=== PATIENT | male | born 1985 | race Caucasian/White ===

== ENCOUNTER 2017-07-31 13:37 | Inpatient (IN) | payer OTHER, MEDICAID ==
[2017-07-31] MEDS: NICOTINE 21MG/24HR 1 EA TRANSDERMAL TD (15:34)
[2017-07-31] MEDS: buPROPion **XL** TABLET 150MG (WELLBUTRIN XL) PO (15:34)
[2017-07-31] MEDS: CitaloPRAM (CeleXA) 20 MG TAB PO (15:34)
[2017-07-31] MEDS ORDERED: MAALOX 30 ML SUSP *UDC PO (17:00)
[2017-07-31] MEDS: BUPRENORPHINE/NALOXONE 2-0.5MG SUBLINGUAL TABLET(SUBOXONE) SL (20:11)
[2017-07-31] MEDS: ARIPiprazole 2 MG TAB PO (20:11)
[2017-07-31] MEDS: traZODone 50 MG TAB PO (21:10)
[2017-08-01] MEDS: diphenhydrAMINE 50 MG CAP PO ×2 (01:35→21:42)
[2017-08-01] MEDS: CitaloPRAM (CeleXA) 20 MG TAB PO (08:21)
[2017-08-01] MEDS: NICOTINE 21MG/24HR 1 EA TRANSDERMAL TD (08:21)
[2017-08-01] MEDS: BUPRENORPHINE/NALOXONE 2-0.5MG SUBLINGUAL TABLET(SUBOXONE) SL ×2 (08:21→20:40)
[2017-08-01] MEDS: buPROPion **XL** TABLET 150MG (WELLBUTRIN XL) PO (08:21)
[2017-08-01] MEDS ORDERED: diphenhydrAMINE 50 MG CAP PO (18:00)
[2017-08-01] MEDS: traZODone 100 MG TAB PO (21:41)
[2017-08-02] MEDS: NICOTINE 21MG/24HR 1 EA TRANSDERMAL TD (08:36)
[2017-08-02] MEDS: CitaloPRAM (CeleXA) 20 MG TAB PO (08:37)
[2017-08-02] MEDS: buPROPion **XL** TABLET 150MG (WELLBUTRIN XL) PO (08:37)
[2017-08-02] MEDS: BUPRENORPHINE/NALOXONE 2-0.5MG SUBLINGUAL TABLET(SUBOXONE) SL ×2 (09:34→20:09)
[2017-08-02] MEDS: traZODone 100 MG TAB PO (21:00)
[2017-08-02] MEDS: diphenhydrAMINE 50 MG CAP PO (21:00)
[2017-08-03] MEDS: BUPRENORPHINE/NALOXONE 2-0.5MG SUBLINGUAL TABLET(SUBOXONE) SL ×3 (06:00→17:15)
[2017-08-03] MEDS: NICOTINE 21MG/24HR 1 EA TRANSDERMAL TD (08:45)
[2017-08-03] MEDS: CitaloPRAM (CeleXA) 20 MG TAB PO (08:45)
[2017-08-03] MEDS: buPROPion **XL** TABLET 150MG (WELLBUTRIN XL) PO (08:45)
[2017-08-03] MEDS ORDERED: BUPRENORPHINE/NALOXONE 2-0.5MG SUBLINGUAL TABLET(SUBOXONE) SL (18:00)
[2017-08-03] MEDS: AVEENO TOP (20:58)
[2017-08-03] MEDS: diphenhydrAMINE 50 MG CAP PO (20:58)
[2017-08-03] MEDS: traZODone 100 MG TAB PO (20:58)
[2017-08-03] MEDS: COAL TAR 1% SHAMPOO 180 ML BTL TOP (20:58)
[2017-08-04] MEDS: NICOTINE 21MG/24HR 1 EA TRANSDERMAL TD (08:43)
[2017-08-04] MEDS: CitaloPRAM (CeleXA) 20 MG TAB PO (08:43)
[2017-08-04] MEDS: buPROPion **XL** TABLET 150MG (WELLBUTRIN XL) PO (08:43)
[2017-08-04] MEDS: AVEENO TOP (08:44)
[2017-08-04] MEDS: BUPRENORPHINE/NALOXONE 2-0.5MG SUBLINGUAL TABLET(SUBOXONE) SL ×2 (09:33→17:16)
[2017-08-04] MEDS ORDERED: cloNIDine 0.1 MG TAB PO (14:45)
[2017-08-04] MEDS ORDERED: AVEENO TOP (21:00)
[2017-08-04] MEDS: LACTIC ACID 12% LOTION 225 GM BTL TOP (21:07)
[2017-08-04] MEDS: COAL TAR 1% SHAMPOO 180 ML BTL TOP (21:08)
[2017-08-04] MEDS: diphenhydrAMINE 50 MG CAP PO (22:04)
[2017-08-04] MEDS: RAMELTEON 8 MG TAB (ROZEREM) PO (22:04)
[2017-08-04] MEDS: traZODone 100 MG TAB PO (22:05)
[2017-08-05] MEDS: NICOTINE 21MG/24HR 1 EA TRANSDERMAL TD (08:52)
[2017-08-05] MEDS: CitaloPRAM (CeleXA) 20 MG TAB PO (08:52)
[2017-08-05] MEDS: BUPRENORPHINE/NALOXONE 2-0.5MG SUBLINGUAL TABLET(SUBOXONE) SL ×2 (08:52→20:31)
[2017-08-05] MEDS: buPROPion **XL** TABLET 150MG (WELLBUTRIN XL) PO (08:52)
[2017-08-05 11:34] LABS: BASO # 0.1 10^3/uL (0.0-0.2); BASO % 0.6 % (0.0-1.0); EOS # 0.3 10^3/uL (0.0-0.50); EOS % 2.9 % (0.0-3.0); HEMATOCRIT 55.9 % (42.0-52.0); HEMOGLOBIN 15.4 g/dl (13.5-17.5); IMMATURE GRANULOCYTE % 0.5 % (0-3.0); LYMPH % 34.2 % (24.0-44.0); MEAN CORPUSCULAR HEMOGLOBIN 32.3 pg (27.0-33.0); MEAN CORPUSCULAR HGB CONC 27.5 g/dl (32.0-36.5); MONO # 0.8 10^3/uL (0.0-0.8); MONO % 9.2 % (0.0-5.0); NEUTROPHILS # 4.6 10^3/uL (1.8-7.7); NEUTROPHILS % 52.6 % (36.0-66.0); PLATELET COUNT, AUTOMATED 206 10^3/uL (150-450); RED BLOOD COUNT 4.77 10^6/uL (4.30-6.10); RED CELL DISTRIBUTION WIDTH 10.9 % (11.5-14.5); WHITE BLOOD COUNT 8.6 10^3/uL (4.0-10.0)
[2017-08-05 11:35] LABS: ADD MORPHOLOGY? YES; MEAN CORPUSCULAR VOLUME 117.2 fl (80.0-96.0); POSITIVE MORPH POS FLAG
[2017-08-05 11:55] LABS: PLATELET ESTIMATE NORMAL (NORMAL)
[2017-08-05 12:16] LABS: ALBUMIN 3.8 GM/DL (3.2-5.2); ALBUMIN/GLOBULIN RATIO 1.15 (1.00-1.93); ALKALINE PHOSPHATASE 70 U/L (45-117); ALT/SGPT 22 U/L (12-78); ANION GAP 5 MEQ/L (8-16); AST/SGOT 14 U/L (7-37); BILIRUBIN,TOTAL 0.2 MG/DL (0.2-1.0); BLOOD UREA NITROGEN 11 MG/DL (7-18); CALCIUM LEVEL 8.4 MG/DL (8.5-10.1); CARBON DIOXIDE LEVEL 31 MEQ/L (21-32); CHLORIDE LEVEL 104 MEQ/L (98-107); CREATININE FOR GFR 0.86 MG/DL (0.70-1.30); FREE THYROXINE INDEX 2.2 % (1.4-3.8); GLOMERULAR FILTRATION RATE > 60.0 (>60); GLUCOSE, FASTING 82 MG/DL (70-100); POTASSIUM SERUM 4.3 MEQ/L (3.5-5.1); SODIUM LEVEL 140 MEQ/L (136-145); T UPTAKE 33 % (33-40); THYROXINE (T4) 6.6 UG/DL (4.5-12.0); TOTAL PROTEIN 7.1 GM/DL (6.4-8.2)
[2017-08-05] MEDS: traZODone 100 MG TAB PO (21:16)
[2017-08-05] MEDS: RAMELTEON 8 MG TAB (ROZEREM) PO (21:16)
[2017-08-05] MEDS: diphenhydrAMINE 50 MG CAP PO (23:16)
[2017-08-06] MEDS: BUPRENORPHINE/NALOXONE 2-0.5MG SUBLINGUAL TABLET(SUBOXONE) SL ×2 (09:20→18:01)
[2017-08-06] MEDS: NICOTINE 21MG/24HR 1 EA TRANSDERMAL TD (09:20)
[2017-08-06] MEDS: CitaloPRAM (CeleXA) 20 MG TAB PO (09:20)
[2017-08-06] MEDS: buPROPion **XL** TABLET 150MG (WELLBUTRIN XL) PO (09:20)
[2017-08-06] MEDS: diphenhydrAMINE 50 MG CAP PO (22:01)
[2017-08-06] MEDS: traZODone 100 MG TAB PO (22:01)
[2017-08-06] MEDS: RAMELTEON 8 MG TAB (ROZEREM) PO (22:01)
[2017-08-07] MEDS: buPROPion **XL** TABLET 150MG (WELLBUTRIN XL) PO (08:21)
[2017-08-07] MEDS: CitaloPRAM (CeleXA) 20 MG TAB PO (08:21)
[2017-08-07] MEDS: NICOTINE 21MG/24HR 1 EA TRANSDERMAL TD (08:22)
[2017-08-07] MEDS: BUPRENORPHINE/NALOXONE 2-0.5MG SUBLINGUAL TABLET(SUBOXONE) SL ×2 (09:07→17:03)
[2017-08-07] MEDS: MOM 30ML SUSPENSION UDC PO (11:50)
[2017-08-07] MEDS: diphenhydrAMINE 50 MG CAP PO (22:06)
[2017-08-07] MEDS: RAMELTEON 8 MG TAB (ROZEREM) PO (22:06)
[2017-08-07] MEDS: traZODone 100 MG TAB PO (22:06)
[2017-08-08] MEDS: CitaloPRAM (CeleXA) 20 MG TAB PO (08:44)
[2017-08-08] MEDS: buPROPion **XL** TABLET 150MG (WELLBUTRIN XL) PO (08:44)
[2017-08-08] MEDS: NICOTINE 21MG/24HR 1 EA TRANSDERMAL TD (08:44)
[2017-08-08] MEDS: ACETAMINOPHEN TAB 650MG DOSE (2X325MG) PO ×2 (08:45→22:08)
[2017-08-08] MEDS: BUPRENORPHINE/NALOXONE 2-0.5MG SUBLINGUAL TABLET(SUBOXONE) SL ×2 (09:18→17:08)
[2017-08-08] MEDS: BISACODYL 5 MG TAB PO (11:43)
[2017-08-08] MEDS: LACTIC ACID 12% LOTION 225 GM BTL TOP (13:40)
[2017-08-08] MEDS: COAL TAR 1% SHAMPOO 180 ML BTL TOP (17:11)
[2017-08-08] MEDS: RAMELTEON 8 MG TAB (ROZEREM) PO (22:56)
[2017-08-08] MEDS: diphenhydrAMINE 50 MG CAP PO (22:56)
[2017-08-08] MEDS: traZODone 100 MG TAB PO (22:59)
[2017-08-09] MEDS: buPROPion **XL** TABLET 150MG (WELLBUTRIN XL) PO (06:38)
[2017-08-09] MEDS: CitaloPRAM (CeleXA) 20 MG TAB PO (06:39)
[2017-08-09] MEDS: BUPRENORPHINE/NALOXONE 2-0.5MG SUBLINGUAL TABLET(SUBOXONE) SL (06:39)
[2017-08-09] MEDS: NICOTINE 21MG/24HR 1 EA TRANSDERMAL TD (06:42)
== END 2017-08-09 07:00 | disposition home or self-care (01) | DRG 753 ==
LOC: M ED 13:37 → M ED INP 16:48 → M PSY 17:30
DX: F31.81 Bipolar II disorder (principal); F10.94 Alcohol use, unspecified with alcohol-induced mood disorder; R45.851 Suicidal ideations; F41.1 Generalized anxiety disorder; F43.10 Post-traumatic stress disorder, unspecified; F11.10 Opioid abuse, uncomplicated; F17.210 Nicotine dependence, cigarettes, uncomplicated; Z79.899 Other long term (current) drug therapy

== ENCOUNTER 2020-04-13 15:41 | Inpatient (IN) | payer MEDICAID, OTHER, SELFPAY ==
[~2020-04-13] VITALS: Ht 172.7 cm; Wt 71.4 kg
[~2020-04-13 15:41] MED LIST: ARIP1TAB6 PO; BUPR2SUB SL; CELE20TA PO; DIPH50CA PO; ROZE8TAB16 PO; TRAZ1TAB12 PO; WELLTAB40 PO
[2020-04-13] MEDS ORDERED: MOM 30ML SUSPENSION UDC PO PRN (18:30)
[2020-04-13] MEDS ORDERED: IBUPROFEN 400 MG TAB PO PRN (18:30)
[2020-04-13] MEDS ORDERED: MAALOX 30 ML SUSP *UDC PO PRN (18:30)
[2020-04-13] MEDS ORDERED: LORazepam 2 MG TAB PO PRN (18:30)
[2020-04-13] MEDS: NICOTINE 21MG/24HR 1 EA TRANSDERMAL TD SCH (21:26)
[2020-04-13] MEDS: MULTIVITAMINS/MINERALS THERAP 1 TAB PO SCH (21:26)
[2020-04-13] MEDS: FOLIC ACID 1 MG TAB PO SCH (21:26)
[2020-04-13 21:53] VITALS: BP 135/85
[2020-04-13 21:55] VITALS: BP 135/85
[2020-04-13] MEDS: THIAMINE 100 MG TAB PO SCH (21:58)
[2020-04-13] MEDS: traZODone 50 MG TAB PO PRN (22:34)
[2020-04-13] MEDS: OLANZapine 5 MG TAB PO PRN (22:41)
[2020-04-14 06:26] VITALS: BP 135/85
[2020-04-14 06:27] VITALS: BP 135/85
[2020-04-14] MEDS: NICOTINE 21MG/24HR 1 EA TRANSDERMAL TD SCH (08:08)
[2020-04-14] MEDS: FOLIC ACID 1 MG TAB PO SCH (08:08)
[2020-04-14] MEDS: THIAMINE 100 MG TAB PO SCH ×2 (08:08→20:23)
[2020-04-14] MEDS: MULTIVITAMINS/MINERALS THERAP 1 TAB PO SCH (09:00)
[2020-04-14] MEDS ORDERED: INFLUENZA QUADRIVALENT PF VACCINE 0.5ML SYRINGE IM ONE (09:00)
[2020-04-14 13:51] VITALS: BP 128/75
[2020-04-14 14:45] VITALS: BP 125/75
--- NOTE | 2020-04-14 17:46 | HPEPDOC ---
General Date of Admission Apr 13, 2020 at 18:20 Date of Service: Apr 14, 2020 Chief Complaint The patient is a 35-year-old male admitted with a reason for visit of Unspecified Depressive Disorder. Source: Patient Exam Limitations: No limitations Timing/Duration: Week(s) Severity: Mild History of Present Illness Patient is 35 years old male with past history of bipolar disorder, depression, anxiety presented to the hospital with suicidal ideation. Patient stated that he was under significant emotional distress this year and he broke up with his girlfriend. After that he wanted to kill himself. Patient denies fever, chills, chest pain, palpitations, nausea, vomiting, diarrhea or dysuria Home Medications No Active Prescriptions or Reported Meds Allergies Coded Allergies: No Known Allergies (Unverified , 07/31/17) Past Medical History Medical History Depression, bipolar, anxiety Family History Mother has depression Social History * Smoker: current smoker Alcohol: Denies Drugs: IV drug use (in the past), other A-FIB/CHADSVASC A-FIB History Current/History of A-Fib/PAF?: No Current PO Anticoag Therapy: No Review of Systems Constitutional: Denies: Chills, Fever Eyes: Denies: Pain ENT: Denies: Head Aches Skin: Denies: Rash Pulmonary: Denies: Dyspnea, Cough Cardiovascular: Denies: Chest Pain Gastrointestinal: Denies: Nausea, Vomiting Genitourinary: Denies: Dysuria Hematologic: Denies: Bruising Endocrine: Denies: Polydipsia Musculoskeletal: Denies: Neck Pain Neurological: Denies: Weakness Psych: Reports: Anxiety, Depression Physical Examination General Exam: Positive: Alert, Cooperative Eye Exam: Positive: PERRLA ENT Exam: Positive: Atraumatic Neck Exam: Positive: Supple; Negative: JVD Chest Exam: Positive: Clear to auscultation Heart Exam: Positive: Rate Normal Telemetry: Positive: No significant arrhythmia Abdomen Exam: Positive: Normal bowel sounds Extremity Exam: Negative: Clubbing, Cyanosis Skin Exam: Negative: Nl turgor and temperature Neuro Exam: Positive: Strength at 5/5 X4 ext Psych Exam: Positive: Anxiety, Oriented x 3; Negative: Mental status NL Vital Signs Vital Signs Date Time Temp Pulse Resp B/P (MAP) Pulse Ox O2 Delivery O2 Flow Rate FiO2 04/14/20 14:45 99.0 98 16 125/75 (92) 100 Room Air Assessment/Plan Patient is 35 years old male with past history of bipolar disorder, depression, anxiety presented to the hospital with suicidal ideation. Patient stated that he was under significant emotional distress this year and he broke up with his girlfriend. After that he wanted to kill himself. Patient denies fever, chills, chest pain, palpitations, nausea, vomiting, diarrhea or dysuria Problems (1) Depression with suicidal ideation Status: Acute Problem Text: Defer treatment to psych team Plan / VTE VTE Prophylaxis Ordered?: No VTE Exclusion Mechanical Proph: Low Risk for VTE JOHNSON AGUILAR DO Apr 14, 2020 17:46
[2020-04-14 18:04] VITALS: BP 133/82
[2020-04-14] MEDS: OLANZapine 5 MG TAB PO PRN (20:23)
[2020-04-14 22:13] VITALS: BP 168/83
[2020-04-14] MEDS: traZODone 50 MG TAB PO PRN (22:16)
[2020-04-15 06:42] VITALS: BP 115/60
[2020-04-15 06:44] VITALS: BP 115/60
[2020-04-15] MEDS: MULTIVITAMINS/MINERALS THERAP 1 TAB PO SCH (08:04)
[2020-04-15] MEDS: FOLIC ACID 1 MG TAB PO SCH (08:04)
[2020-04-15] MEDS: THIAMINE 100 MG TAB PO SCH ×2 (08:04→20:07)
[2020-04-15] MEDS: NICOTINE 21MG/24HR 1 EA TRANSDERMAL TD SCH (08:04)
--- NOTE | 2020-04-15 11:17 | WAPSY-INT ---
[facility] PSYCH INITIAL ASSESSMENT DATE OF ADMISSION: 04/13/2020 CHIEF COMPLAINT: Feels depressed. SUBJECTIVE: He is 35 years old, just turned 35 [address] day, a couple days ago. He was transferred from [facility], where he had been taken a few days ago, this was after police were called, he had barricaded himself in his mother's place, she had at that time left the house for a brief while. Says they had a dispute, he is somewhat vague about the dispute, but that it was to do with his emotional state as well, he has been depressed for the better part of the last couple of months, most of early March when he returned from [place], after his relationship with his girlfriend, Selena, ended. He says that had been together since August of this year, she had visited him in the [facility], and things were going well. 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 He says she was quite angry, took off, left him there, he had no transportation, he was not familiar with the area either, in [place]. She sent him a cab, which took him to a hotel, this was around about , says they somewhat reconciled later, he returned to her place, where he had been living, with her and her two children. Matters did not improve much, and she essentially asked him to leave, this was the beginning of this month, he was in touch with his mother in the [facility], and some extended family on her side, including her brother, who suggested that he come back, he went to his mother's place, and has been living there since early this month. He says he now has no place to go back to, as his mother essentially does not want him there. He says they have had a difficult relationship, he and his mother, and for the better part of this month he has been thinking of killing himself. He has thought of various ways, including placing stones in a bag, like a backpack, and then drowning himself. He says that if the police had not been called the other day, it was likely that he would have hung himself. Sleep has been diminished, says there are nights when he goes without much sleep, he has been drinking, regularly, the last several weeks, has tended to do that for longer than that as well, but it has been getting more intense, more frequent. He suggests he has not smoked any marijuana, nor use any opioids, although he used to be on Suboxone for a brief while. He has had periods where he has had an elated mood, with racing thoughts, and somewhat excessive energy, though he is somewhat vague on this, this happens even when he is without alcohol, though he says he has not been without any alcohol for more than a few days over the last several months. No recent history of psychosis, he was admitted on one occasion in the past, in 2018, discharge summary is reviewed, there are some question of auditory hallucinations at that time. It should be noted, at the time, he was diagnosed with bipolar type 2 disorder with psychotic features, as a rule out of substance abuse to mood disorder, he was also diagnosed with generalized anxiety disorder, and a rule out of post-traumatic stress disorder. When he was last here, he was discharged on Wellbutrin 300 mg daily, Abilify 5 mg daily, Celexa 20 mg daily, Suboxone, and Rozerem. Says he was on them for a short while, relatively speaking, and had tremors, at some point stopped the medicines. He has not been on any medicines, nor any formal care, for the better part of the last two years. Followed up at [facility], in the [facility], and then at some point [facility] the substance abuse facility, apparently as an outpatient. He was not in any care of any sort when he was in [place]. PAST PSYCHIATRIC HISTORY: Please refer to the previous summaries, has had one hospitalization here, others have been at [facility]. FAMILY PSYCHIATRIC HISTORY: Unknown, though he suggested his mother has emotional disabilities. SUBSTANCE ABUSE HISTORY: He has a history of alcohol and opiate misuse. PAST MEDICAL HISTORY: Denies being treated for any medical problems. MEDICATIONS: None. SOCIAL HISTORY: Please refer to previous summaries. He is an only child, says he does not know his father, has relationship that is off and on with his mother, was close to her mother, who essentially was a mother figure for him, she about five years ago. He and his partner were together since earlier this year. He says that he would wish to continue the relationship, there has been some contact since then. He says he has had no indication that she wishes to continue, however. It should also be noted that the patient has been charged with violating a refrain from order, which had been in place over the last couple of years, between him and his mother. He says he was not aware of this, and thought that that was no longer valid. Says has had close friends in the past, but none recently, left his friends, with contact when he left for [place]. MENTAL STATUS EXAMINATION: He is neat, generally cooperative. No agitation. No psychomotor retardation. He is coherent, although sometimes a bit circumstantial, but directable, no abnormal movements noted. He has suicidal thoughts, vague on plans, no homicidal ideations or intents. Currently no evidence of any psychosis. His cognition is grossly intact. No delusional ideations elicited. No fluctuation of consciousness. Judgment and insight are somewhat compromised. Vital signs with blood pressure 123/61, pulse 87, temperature 98.9. ASSESSMENT: Bipolar type 2 disorder by history. Generalized anxiety disorder by history. Alcohol use disorder. Consider alcohol-induced mood disorder. Has had mood fluctuations, possibly alternating dependence of alcohol, with exacerbations by his difficult social situation, and has been quite depressed lately, with suicidal thoughts, including plan. Breakup of a relationship with his girlfriend, and difficult relationship with his mother, limited social support, all put him at risk for harming himself. PLAN: He is admitted to the inpatient psychiatry unit, placed on the relevant precautions. We will look at withdrawal symptoms as well, given that he has been using alcohol regularly. We will look at obtaining collateral information. He is willing for us to speak with his mother, as well as his girlfriend, of course if she is willing. He will receive a medicine consult if indicated. I would suggest starting him on a mood stabilizer, but also obtaining collateral information is preferable, meanwhile, empirically we will start him on a mood stabilizer rather than an antidepressant. He has been encouraged to participate in activities within the unit. He will be discharged with follow-up once he is stable. Further recommendations will be made depending on the clinical picture. I would anticipate him staying her five to seven days. The assessment took 50 minutes.
[2020-04-15] MEDS: OLANZapine 5 MG TAB PO PRN ×2 (12:57→20:08)
--- NOTE | 2020-04-15 12:58 | MHIPNPDOC ---
[facility] Progress Note Progress Note DATE OF SERVICE: 04/15/20 HISTORY: Pt is a 35 year old Single, Unemployed, Undomiciled, Male who was transferred from [facility], where he had been taken a few days ago on a 9.41 after he had barricaded himself in his mother's place. Says they had a dispute, he is somewhat vague about the dispute, but that it was to do with his emotional state as well, he has been depressed for the better part of the last couple of months,. He says they have had a difficult relationship, he and his mother, and for the better part of this month he has been thinking of killing himself. He has thought of various ways, including placing stones in a bag, like a backpack, and then drowning himself. He says that if the police had not been called the other day, it was likely that he would have hung himself. He reports a tumultuous relationship and subsequent break up with a woman he met through mutual friend earlier this year. He returned to the area and was living with his mother, with whom he has had a strained relationship. He admits to having bipolar symptoms and feels that these symptoms coupled with his drinking may have contributed to the demise of his relationship with his girlfriend. VITAL SIGNS: See below. CURRENT MEDICATIONS: See below. MENTAL STATUS EXAMINATION: Pt is a 35 year old Single, Unemployed, Undomiciled, Male who was transferred from [facility], where he had been taken a few days ago on a 9.41 after he had barricaded himself in his mother's place. He had reported to be suicidal with a plan to hang or drown himself. He appears mildly older than his stated age, alert and oriented and makes good eye contact. He is not observed with any psychomotor agitation or retardation. Speech: Is fluid, conversant, normal rate, tone and volume Language skills are intact Thought processes including: linear and goal oriented Thought content: reports depression and anxiety. Mild suicidal ideation, with no planning or intent. Abstract reasoning, and computation: fair Description of associations: denies, none observed Description of abnormal or psychotic thoughts: denies, none observed. Judgment: fair Insight: fair Orientation: alert and oriented to person, place, time and situation Recent and remote memory: intact Attention span and concentration: good Language: expansive Fund of knowledge: average Mood: depressed and anxious mood Affect: reactive DIAGNOSES: Bipolar II Disorder, per History Alcohol Use Disorder Alcohol Induced Depressive Disorder Generalized Anxiety Disorder ASSESSMENT: Patient scores extremely high on a generic mood disorder questionnaire. He reports that he felt that he was doing well in [place] with his girlfriend but that there was points in the relationship where he may have been manic, drinking and or very difficult to deal with. He does report moderate alcohol withdrawal symptoms of headaches, tactile parasthesia, and stomach ache. He discussed his sadness about the demise of his relationship with his girlfriend, he is hopeful that there may be a reconciliation in the future. Patient is quite hesitant to start medications, reporting that he likes his creativity and artistic talents and does not want to lose these abilities. Discussed with the patient the benefits of medications helping him to be stable and less likely to be suicidal either when he is manic or depressed. He is agreeable to start Depakote at lower dose and titrate slowly. MANAGEMENT PLAN: Start Depakote 125 mg at HS, this will be titrated to therapeutic levels. Patient is apprehensive and a very low dose will be started. TIME SPENT: 40 minutes. Vital Signs Vital Signs Date Time Temp Pulse Resp B/P (MAP) Pulse Ox O2 Delivery O2 Flow Rate FiO2 04/15/20 06:44 98.6 68 16 115/60 (78) 97 Room Air Current Medications Current Medications Medications (Trade) Dose Ordered Sig/Sejal Route PRN Reason Start Time Stop Time Status Last Admin Dose Admin Al Hydrox/Mg Hydrox/Simethicone (Mylanta) 30 ml Q4HP PRN PO HEARTBURN/INDIGESTION 04/13/20 18:30 Divalproex Sodium (Depakote) 125 mg QHS PO 04/15/20 21:00 Folic Acid (Folic Acid) 1 mg DAILY PO 04/13/20 09:00 04/15/20 08:04 Home Med (Med Rec Complete!) ASDIRECTED XX 04/13/20 17:00 04/13/20 17:09 DC Ibuprofen (Advil) 400 mg Q6HP PRN PO PAIN 04/13/20 18:30 Lorazepam (Ativan) 2 mg ASDIRECTED PRN PO SEE PROTOCOL 04/13/20 18:30 04/14/20 18:07 Magnesium Hydroxide (Milk Of Magnesia) 30 ml DAILYPRN PRN PO CONSTIPATION 04/13/20 18:30 Multivitamins (Theragram-M) 1 tab DAILY PO 04/13/20 09:00 04/15/20 08:04 Nicotine (Nicoderm Cq 21mg) 1 patch DAILY TD 04/13/20 09:00 04/15/20 08:04 Olanzapine (ZyPREXA) 5 mg Q4HP PRN PO ANXIETY/AGITATION 04/13/20 18:30 04/14/20 20:23 Thiamine HCl (Thiamine HCl) 100 mg BID PO 04/13/20 21:00 04/16/20 20:59 04/15/20 08:04 Trazodone HCl (Desyrel) 50 mg QHSP PRN PO INSOMNIA 04/13/20 18:30 04/14/20 22:16 Allergies Coded Allergies: No Known Allergies (Unverified , 07/31/17) GLORIA SANABRIA NP Apr 15, 2020 12:58
[2020-04-15 15:00] VITALS: BP 121/71
[2020-04-15 17:58] VITALS: BP 121/71
[2020-04-15] MEDS: hydrOXYzine 50 MG TAB PO SCH (20:07)
[2020-04-15] MEDS ORDERED: DIVALPROEX 125 MG TAB PO SCH (21:00)
[2020-04-15] MEDS: traZODone 50 MG TAB PO PRN (22:54)
[2020-04-16 06:23] VITALS: BP 108/57
[2020-04-16] MEDS: MULTIVITAMINS/MINERALS THERAP 1 TAB PO SCH (08:02)
[2020-04-16] MEDS: THIAMINE 100 MG TAB PO SCH (08:03)
[2020-04-16] MEDS: NICOTINE 21MG/24HR 1 EA TRANSDERMAL TD SCH (08:03)
[2020-04-16] MEDS: hydrOXYzine 50 MG TAB PO SCH ×2 (08:03→20:05)
[2020-04-16] MEDS: FOLIC ACID 1 MG TAB PO SCH (08:03)
[2020-04-16] MEDS: OLANZapine 5 MG TAB PO PRN ×2 (13:58→20:05)
--- NOTE | 2020-04-16 14:47 | MHIPNPDOC ---
[facility] Progress Note Progress Note DATE OF SERVICE: 04/16/20 HISTORY: Pt is a 35 year old Single, Unemployed, Undomiciled, Male who was transferred from [facility], where he had been taken a few days ago on a 9.41 after he had barricaded himself in his mother's place. Says they had a dispute, he is somewhat vague about the dispute, but that it was to do with his emotional state as well, he has been depressed for the better part of the last couple of months,. He says they have had a difficult relationship, he and his mother, and for the better part of this month he has been thinking of killing himself. He has thought of various ways, including placing stones in a bag, like a backpack, and then drowning himself. He says that if the police had not been called the other day, it was likely that he would have hung himself. He reports a tumultuous relationship and subsequent break up with a woman he met through mutual friend earlier this year. He returned to the area and was living with his mother, with whom he has had a strained relationship. He admits to having bipolar symptoms and feels that these symptoms coupled with his drinking may have contributed to the demise of his relationship with his girlfriend. VITAL SIGNS: See below. CURRENT MEDICATIONS: See below. MENTAL STATUS EXAMINATION: Pt is a 35 year old Single, Unemployed, Undomiciled, Male who was transferred from [facility], where he had been taken a few days ago on a 9.41 after he had barricaded himself in his mother's place. He had reported to be suicidal with a plan to hang or drown himself. He appears mildly older than his stated age, alert and oriented and makes good eye contact. He is observed with mild psychomotor agitation. Speech: Is fluid, conversant, mildly rapid rate, tone and volume, hyperverbal, tangential and at times circumstantial Language skills are intact Thought processes including: linear and goal oriented Thought content: reports depression and anxiety. Fleeting suicidal ideation, with no planning or intent. Abstract reasoning, and computation: fair Description of associations: denies, none observed Description of abnormal or psychotic thoughts: denies, none observed. Judgment: fair Insight: fair Orientation: alert and oriented to person, place, time and situation Recent and remote memory: intact Attention span and concentration: good Language: expansive Fund of knowledge: average Mood: depressed and anxious mood, restless, pacing the hallway - was medicated with Zyprexa 5 mg for agitation Affect: reactive, restless DIAGNOSES: Bipolar II Disorder, per History Alcohol Use Disorder Alcohol Induced Depressive Disorder Generalized Anxiety Disorder ASSESSMENT: Patient is observed to be mildly hypomanic in speech, tangential and at times circumstantial - her reported that he spoke to his ex-girlfriend asking for a copy of payroll stubs (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 He reported that he suspected that his girlfriend may have been unfaithful which may have elevated his racing moods, insomnia and labile moods and subsequently suicidal ideation, planning and near intent. He was found pacing the floor prior to this interview, having just spoken to his girlfriend. He was very animated and irritable in the interview describing his relationship with her. Reporting that he feels that he has been drawn to people who give him limited or no supports. States that his relationship with his mother is always on the brink of her washing his hands of him and kicking him out. He feels that the last month of this relationship felt the same as his relationship with his mother. Throughout the interview, he admits that he fears that taking medications will halt his creativity and this has been his resistance to medications. MANAGEMENT PLAN: Patient tolerated Depakote 125 mg, increase to Depakote ER 250 mg at HS. Due to patient's finances, Depakote prices were researched, [employer] sells Depakote ER 250 mg 60 tablets for $13.60. Patient feels that he can manage this. He was medicated with Zyprexa 5 mg for agitation with good effects. TIME SPENT: 40 minutes. Vital Signs Vital Signs Date Time Temp Pulse Resp B/P (MAP) Pulse Ox O2 Delivery O2 Flow Rate FiO2 04/16/20 09:11 Room Air 04/16/20 06:23 97.9 58 18 108/57 (74) 99 Current Medications Current Medications Medications (Trade) Dose Ordered Sig/Sejal Route PRN Reason Start Time Stop Time Status Last Admin Dose Admin Al Hydrox/Mg Hydrox/Simethicone (Mylanta) 30 ml Q4HP PRN PO HEARTBURN/INDIGESTION 04/13/20 18:30 Divalproex Sodium (Depakote) 125 mg QHS PO 04/15/20 21:00 04/15/20 20:08 Folic Acid (Folic Acid) 1 mg DAILY PO 04/13/20 09:00 04/16/20 08:03 Home Med (Med Rec Complete!) ASDIRECTED XX 04/13/20 17:00 04/13/20 17:09 DC Hydroxyzine HCl (Atarax) 50 mg BID PO 04/15/20 21:00 04/16/20 08:03 Ibuprofen (Advil) 400 mg Q6HP PRN PO PAIN 04/13/20 18:30 Lorazepam (Ativan) 2 mg ASDIRECTED PRN PO SEE PROTOCOL 04/13/20 18:30 04/14/20 18:07 Magnesium Hydroxide (Milk Of Magnesia) 30 ml DAILYPRN PRN PO CONSTIPATION 04/13/20 18:30 Multivitamins (Theragram-M) 1 tab DAILY PO 04/13/20 09:00 04/16/20 08:02 Nicotine (Nicoderm Cq 21mg) 1 patch DAILY TD 04/13/20 09:00 04/16/20 08:03 Olanzapine (ZyPREXA) 5 mg Q4HP PRN PO ANXIETY/AGITATION 04/13/20 18:30 04/15/20 20:08 Thiamine HCl (Thiamine HCl) 100 mg BID PO 04/13/20 21:00 04/16/20 20:59 04/16/20 08:03 Trazodone HCl (Desyrel) 50 mg QHSP PRN PO INSOMNIA 04/13/20 18:30 04/15/20 22:54 Allergies Coded Allergies: No Known Allergies (Unverified , 07/31/17) GLORIA SANABRIA NP Apr 16, 2020 14:01
[2020-04-16 18:00] VITALS: BP 135/84
[2020-04-16] MEDS: DIVALPROEX 250MG *ER* TAB PO SCH (20:06)
[2020-04-16] MEDS: traZODone 50 MG TAB PO PRN (22:43)
[2020-04-17 05:51] VITALS: BP 107/56
[2020-04-17] MEDS: MULTIVITAMINS/MINERALS THERAP 1 TAB PO SCH (08:33)
[2020-04-17] MEDS: FOLIC ACID 1 MG TAB PO SCH (08:35)
[2020-04-17] MEDS: hydrOXYzine 50 MG TAB PO SCH ×2 (08:35→20:06)
[2020-04-17] MEDS: NICOTINE 21MG/24HR 1 EA TRANSDERMAL TD SCH (08:35)
[2020-04-17] MEDS ORDERED: diphenhydrAMINE 50MG CAP PO PRN (09:15)
--- NOTE | 2020-04-17 13:29 | MHIPNPDOC ---
[facility] Progress Note Progress Note DATE OF SERVICE: 04/17/20 HISTORY: Pt is a 35 year old Single, Unemployed, Undomiciled, Male who was transferred from [facility], where he had been taken a few days ago on a 9.41 after he had barricaded himself in his mother's place. Says they had a dispute, he is somewhat vague about the dispute, but that it was to do with his emotional state as well, he has been depressed for the better part of the last couple of months,. He says they have had a difficult relationship, he and his mother, and for the better part of this month he has been thinking of killing himself. He has thought of various ways, including placing stones in a bag, like a backpack, and then drowning himself. He says that if the police had not been called the other day, it was likely that he would have hung himself. He reports a tumultuous relationship and subsequent break up with a woman he met through mutual friend earlier this year. He returned to the area and was living with his mother, with whom he has had a strained relationship. He admits to having bipolar symptoms and feels that these symptoms coupled with his drinking may have contributed to the demise of his relationship with his girlfriend. VITAL SIGNS: See below. CURRENT MEDICATIONS: See below. MENTAL STATUS EXAMINATION: Pt is a 35 year old Single, Unemployed, Undomiciled, Male who was transferred from [facility], where he had been taken a few days ago on a 9.41 after he had barricaded himself in his mother's place. He had reported to be suicidal with a plan to hang or drown himself. He appears mildly older than his stated age, alert and oriented and makes good eye contact. He is observed with mild psychomotor agitation. Speech: Is fluid, conversant, mildly rapid rate, tone and volume, hyperverbal, tangential and at times circumstantial Language skills are intact Thought processes including: linear and goal oriented Thought content: reports decreased depression and anxiety. Denies suicidal ideation, with no planning or intent. Abstract reasoning, and computation: fair Description of associations: denies, none observed Description of abnormal or psychotic thoughts: denies, none observed. Judgment: good Insight: good Orientation: alert and oriented to person, place, time and situation Recent and remote memory: intact Attention span and concentration: good Language: expansive Fund of knowledge: average Mood: euthymic mood. Affect: Reactive DIAGNOSES: Bipolar II Disorder, per History Alcohol Use Disorder Alcohol Induced Depressive Disorder Generalized Anxiety Disorder ASSESSMENT: Patient states that his mood is improving on Depakote, feels that without the medication, he would have been quite labile and agitated yesterday. Patient reports improvement in his ability to use his coping mechanisms when given stressful information, states that prior to his hospitalization, he would be very animated, crook and labile. Patient is speaking to his mother, he feels that he can be discharged tomorrow, reporting decrease in frustration, dep ression, aggressiveness, anger and denying today that he has any suicidal ideation. He states that he feels that Dialectic Behavioral Therapy is useful for him and would like to continue that therapy in the community. MANAGEMENT PLAN: Patient tolerating Depakote ER 250 mg with no complaints. Discharge possibly tomorrow. TIME SPENT: 25 minutes. Vital Signs Vital Signs Date Time Temp Pulse Resp B/P (MAP) Pulse Ox O2 Delivery O2 Flow Rate FiO2 04/17/20 08:33 Room Air 04/17/20 05:51 97.7 60 16 107/56 (73) 96 Current Medications Current Medications Medications (Trade) Dose Ordered Sig/Sejal Route PRN Reason Start Time Stop Time Status Last Admin Dose Admin Al Hydrox/Mg Hydrox/Simethicone (Mylanta) 30 ml Q4HP PRN PO HEARTBURN/INDIGESTION 04/13/20 18:30 Diphenhydramine HCl (Benadryl) 50 mg QHSP PRN PO INSOMNIA 04/17/20 09:15 Divalproex Sodium (Depakote Er) 250 mg QHS PO 04/16/20 21:00 04/16/20 20:06 Divalproex Sodium (Depakote) 125 mg QHS PO 04/15/20 21:00 04/16/20 13:32 DC 04/15/20 20:08 Folic Acid (Folic Acid) 1 mg DAILY PO 04/13/20 09:00 04/17/20 08:35 Home Med (Med Rec Complete!) ASDIRECTED XX 04/13/20 17:00 04/13/20 17:09 DC Hydroxyzine HCl (Atarax) 50 mg BID PO 04/15/20 21:00 04/17/20 08:35 Ibuprofen (Advil) 400 mg Q6HP PRN PO PAIN 04/13/20 18:30 Lorazepam (Ativan) 2 mg ASDIRECTED PRN PO SEE PROTOCOL 04/13/20 18:30 04/14/20 18:07 Magnesium Hydroxide (Milk Of Magnesia) 30 ml DAILYPRN PRN PO CONSTIPATION 04/13/20 18:30 Multivitamins (Theragram-M) 1 tab DAILY PO 04/13/20 09:00 04/17/20 08:33 Nicotine (Nicoderm Cq 21mg) 1 patch DAILY TD 04/13/20 09:00 04/17/20 08:35 Olanzapine (ZyPREXA) 5 mg Q4HP PRN PO ANXIETY/AGITATION 04/13/20 18:30 04/16/20 20:05 Thiamine HCl (Thiamine HCl) 100 mg BID PO 04/13/20 21:00 04/16/20 20:59 DC 04/16/20 08:03 Trazodone HCl (Desyrel) 50 mg QHSP PRN PO INSOMNIA 04/13/20 18:30 04/17/20 09:05 DC 04/16/20 22:43 Allergies Coded Allergies: No Known Allergies (Unverified , 07/31/17) GLORIA SANABRIA NP Apr 17, 2020 13:29
[2020-04-17] MEDS: OLANZapine 5 MG TAB PO PRN ×2 (14:06→20:06)
[2020-04-17 18:03] VITALS: BP 134/79
[2020-04-17] MEDS: DIVALPROEX 250MG *ER* TAB PO SCH (20:06)
[2020-04-18 05:46] VITALS: BP 108/56
[2020-04-18] MEDS: FOLIC ACID 1 MG TAB PO SCH (08:14)
[2020-04-18] MEDS: hydrOXYzine 50 MG TAB PO SCH (08:14)
[2020-04-18] MEDS: MULTIVITAMINS/MINERALS THERAP 1 TAB PO SCH (08:14)
[2020-04-18] MEDS: NICOTINE 21MG/24HR 1 EA TRANSDERMAL TD SCH (08:14)
[2020-04-18] MEDS ORDERED: DEPA250T2 PO (09:34)
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
== END 2020-04-18 12:55 | disposition home or self-care (01) | DRG 753 ==
LOC: M ED 15:41 → M ED INP 18:20 → M PSY 20:50
PROVIDERS: ADMIT Psychiatry & Neurology Psychiatry; ATTEND Psychiatry & Neurology Psychiatry
DX: F31.81 Bipolar II disorder (principal); R45.851 Suicidal ideations; F10.10 Alcohol abuse, uncomplicated; F41.1 Generalized anxiety disorder; F17.200 Nicotine dependence, unspecified, uncomplicated